=== PATIENT | male | born 1940 | race Caucasian/White ===

== ENCOUNTER 2020-10-03 14:10 | Emergency (ER) | payer MEDICARE ==
[2020-10-03] MEDS ORDERED: KETOROLAC TROMETHAMINE 30MG/ML ONE (14:39)
== END 2020-10-03 15:17 | disposition home or self-care (01) ==
LOC: EDH 14:10
DX: S60.221A Contusion of right hand, initial encounter (principal); Z88.8 Allergy status to other drugs, medicaments and biological substances; X58.XXXA Exposure to other specified factors, initial encounter; Y93.89 Activity, other specified; Y92.89 Other specified places as the place of occurrence of the external cause; Y99.8 Other external cause status
CPT/HCPCS: 73110; 73130; 96372; 99284; J1885